=== PATIENT | female | born 1990 | race African-American/Black ===

== ENCOUNTER 2018-09-21 10:10 | Emergency (ER) | payer OTHER ==
[2018-09-21 10:33] VITALS: TEMP 98.1; BMI 50.6
--- NOTE | 2018-09-21 11:43 | PDOC ---
History of Present Illness - General Chief Complaint: Nausea/Vomiting Stated Complaint: 35WKS,DM,DIZZINESS Time Seen by Provider: 09/21/18 11:05 History Source: Patient Exam Limitations: No Limitations - History of Present Illness Initial Comments: 09/21/18 11:42 34y F , gestational at 35 weeks presents with vomiting. The pt states she startd feeling nauseous last , has been constant. she vomited 3 x over the past week that has been nbnb. pt endorses mild gradual headache on monday. She took a tylenol without significant improvement. she went to dr. velázquez for evaluation, and was told to come to the ER if the headache or nausea persists. pt notes minimal leg swelling which has been chronic for her, without any claf pain. pt denies any vision changes, numbness/tingling/weakness, cp, abd pain, sob, fever/chills, vag bleeding. PMD: Dr Velázquez Past History - Past Medical History Allergies/Adverse Reactions: Allergies Allergy/AdvReac Type Severity Reaction Status Date / Time No Known Allergies Allergy Verified 09/21/18 10:26 Home Medications: Ambulatory Orders Insulin (LOG) Aspart [NovoLOG -] 24 unit SQ ASDIR 09/21/18 Insulin (Levemir) [Levemir Vial] 105 unit SQ DAILY 09/21/18 COPD: No Diabetes: Yes (insulin) - Suicide/Smoking/Psychosocial Hx Smoking History: Never smoked Review of Systems - Review of Systems Able to Perform ROS?: Yes Comments:: 09/21/18 12:07 Constitutional - no reported Fever, Chills, HEENT: no reported vision changes, sore throat Respiratory: no reported cough, sob, hemoptysis Cardiac: no reported chest pain, palpitations, light headedness, leg swelling Abd/GI: + nausea, vomiting no reported abd pain, , blood per rectum, melena, diarrhea : no reported dysuria, frequency, discharge Musculskelatal - no reported back pain, joint swelling skin - no reported bruising, erythema, rash neurological: +headache no reported , numbness, focal weakness, tingling, ataxia , hematologic: no reported easy bruising, easy bleeding *Physical Exam - Vital Signs Last Vital Signs Temp Pulse Resp BP Pulse Ox 98.1 F 73 18 149/92 99 09/21/18 10:26 09/21/18 10:26 09/21/18 10:26 09/21/18 10:26 09/21/18 10:26 - Physical Exam Comments: 09/21/18 12:12 GENERAL: The patient is awake, alert, and fully oriented, Nontoxic - in no acute distress. HEAD: Normocephalic, atraumatic. EYES: extraocular movements intact, sclera anicteric, conjunctiva clear. ENT: Normal voice, Moist mucous membranes. NECK: Normal range of motion, supple LUNGS: Breath sounds equal, clear to auscultation bilaterally. No wheezes, no rhonchi, no rales. HEART: Regular rate and rhythm, normal S1 and S2 without murmur, rub or gallop. ABDOMEN: gravid abdomen, nontender EXTREMITIES: Normal range of motion, trace edema b/l, neg homans. NEUROLOGICAL: No facial assymetry, Normal speech, moving all 4 extremities spontaneously and symemtrically PSYCH: Normal mood, normal affect. SKIN: Warm, Dry, normal turgor, ED Treatment Course - LABORATORY CBC & Chemistry Diagram: 09/21/18 12:00 09/21/18 12:00 Medical Decision Making - Medical Decision Making 09/21/18 12:12 ddx for sx include tension headache, consider possible ecclampsia pts bp noted slighlty elevated here will ck UA, lab work, will give reglan, fluids will reassess 09/21/18 14:00 labs reviewed headache resolved pt currently asymptmoatic The patient was able to tolerate a meal without any nausea or vomiting. will dc with volleyball player fu next week return prcautions were discussed I discussed the physical exam findings, ancillary test results and final diagnoses with the patient. I answered all of the patient's questions. The patient was satisfied with the care received and felt comfortable with the discharge plan and treatment plan. The patient will call their primary care physician within 24 hours to arrange follow-up and will return to the Emergency Department with any new, persistent or worsening symptoms. *DC/Admit/Observation/Transfer Diagnosis at time of Disposition: headache in third trimester - Discharge Dispostion Disposition: HOME Condition at time of disposition: Improved Decision to Admit order: No - Referrals Referrals: Issa Velázquez MD [Primary Care Provider] - - Patient Instructions Printed Discharge Instructions: DI for Vomiting -- Adult Additional Instructions: Return to the emergency department immediately with ANY new, persistent or worsening symptoms including any worsening headache, vision changes, nausea, vomiting, fevers, vaginal bleeding, abdominal pain or any other concerns. You MUST call and follow up with your doctor tomorrow for further evaluation of your symptoms. Results were discussed with you. Please make sure your doctor reviews the results of your emergency evaluation. Print Language: MALAY - Post Discharge Activity
[2018-09-21] MEDS ORDERED: METOCLOPRAMIDE HCL INJECTION 10 MG/2 ML VIAL IVPUSH ONE (11:47)
[2018-09-21] MEDS ORDERED: ACETAMINOPHEN 325 MG TABLET (FP) PO ONE (11:47)
[2018-09-21] MEDS ORDERED: METOCLOPRAMIDE HCL INJECTION 10 MG/2 ML VIAL ONE (11:53)
[2018-09-21] MEDS ORDERED: SODIUM CHLORIDE 1,000 ML IV ONE (11:56)
[2018-09-21 12:16] LABS: BASO % 0.2 % (0-2.0); EOS % 0.4 % (0-4.5); HEMOGLOBIN 12.9 GM/dL (10.7-15.3); LYMPH % 26.3 % (8-40); MCH 29.7 pg (25.7-33.7); MCHC 33.8 g/dl (32.0-36.0); MEAN CELL VOLUME 87.9 fl (80-96); MEAN PLT VOLUME 8.7 fl (7.5-11.1); NEUT % 65.1 % (42.8-82.8); PLATELET COUNT 234 K/MM3 (134-434); RBC 4.32 M/mm3 (3.60-5.2); RDW 13.8 % (11.6-15.6); WHITE BLOOD COUNT 6.9 K/mm3 (4.0-10.0)
[2018-09-21] MEDS ORDERED: ACETAMINOPHEN 325 MG TABLET (FP) ONE (12:19)
[2018-09-21 12:23] LABS: URINE APPEARANCE CLEAR; URINE BILIRUBIN NEGATIVE (<2.0 mg/dL); URINE COLOR LTYELLOW; URINE GLUCOSE (UA) NEGATIVE (NEGATIVE); URINE KETONE NEGATIVE (NEGATIVE); URINE LEUK ESTERASE NEGATIVE (NEGATIVE); URINE NITRITE NEGATIVE (NEGATIVE); URINE PROTEIN NEGATIVE (NEGATIVE); URINE UROBILINOGEN NEGATIVE mg/dL (0.2-1.0)
[2018-09-21 12:41] LABS: ALBUMIN 2.8 g/dl (3.4-5.0); ALK PHOS 175 U/L (45-117); ANION GAP 6 MMOL/L (8-16); BILIRUBIN,TOTAL 0.2 mg/dL (0.2-1); BLOOD UREA NITROGEN 10 mg/dL (7-18); CALCIUM 9.9 mg/dL (8.5-10.1); CHLORIDE 107 mmol/L (98-107); CO2 25 mmol/L (21-32); CREATININE 0.6 mg/dL (0.55-1.3); GLUCOSE,RANDOM 64 mg/dL (74-106); POTASSIUM 4.5 mmol/L (3.5-5.1); SGOT/AST 21 U/L (15-37); SGPT/ALT 31 U/L (13-61); SODIUM 137 mmol/L (136-145); TOT PROT 6.3 g/dl (6.4-8.2)
[2018-09-21 14:28] VITALS: BP 116/70; PULSE 78
== END 2018-09-21 12:25 | disposition home or self-care (01) ==
LOC: JER 10:10
PROC: 3E033GC Introduction of Other Therapeutic Substance into Peripheral Vein, Percutaneous Approach (ICD-10-PCS; principal; 2018-09-21)
PROC: 3E0337Z Introduction of Electrolytic and Water Balance Substance into Peripheral Vein, Percutaneous Approach (ICD-10-PCS; 2018-09-21)
DX: O26.893 Other specified pregnancy related conditions, third trimester (principal); Z3A.35 35 weeks gestation of pregnancy
CPT/HCPCS: 36415; 80053; 81003; 82962; 85025; 99282-25; J7030

== ENCOUNTER 2018-10-14 05:00 | Inpatient (IN) | payer OTHER ==
[2018-10-14 05:47] LABS: BASO % 0.3 % (0-2.0); EOS % 0.7 % (0-4.5); HEMATOCRIT 36.7 % (32.4-45.2); LYMPH % 28.5 % (8-40); MCH 28.7 pg (25.7-33.7); MCHC 32.6 g/dl (32.0-36.0); MEAN CELL VOLUME 88.1 fl (80-96); MEAN PLT VOLUME 9.1 fl (7.5-11.1); MONO % 8.2 % (3.8-10.2); NEUT % 62.3 % (42.8-82.8); PLATELET COUNT 217 K/MM3 (134-434); RBC 4.17 M/mm3 (3.60-5.2); RDW 13.5 % (11.6-15.6); WHITE BLOOD COUNT 6.6 K/mm3 (4.0-10.0)
[2018-10-14 05:53] VITALS: BMI 54.0
[2018-10-14] MEDS ORDERED: OXYTOCIN 30 UNITS in 0.9% NS 30 UNIT/500 ML INFUS.BAG IVPB SCH (06:00)
[2018-10-14 06:04] LABS: INR 0.86 (0.83-1.09); PROTHROMBIN TIME (PATIENT) 10.1 SEC (9.7-13.0)
[2018-10-14 06:06] LABS: ACTIVATED PTT 27.6 SECONDS (25.2-36.5)
[2018-10-14] MEDS ORDERED: AMPICILLIN SODIUM 2 GM VIAL ONE (06:07)
[2018-10-14] MEDS ORDERED: AMPICILLIN - 2 GM in SODIUM CHLORIDE 100 ML IVPB ONE (06:15)
[2018-10-14 06:26] LABS: ANION GAP 7 MMOL/L (8-16); BLOOD UREA NITROGEN 11 mg/dL (7-18); CALCIUM 9.1 mg/dL (8.5-10.1); CHLORIDE 107 mmol/L (98-107); CO2 23 mmol/L (21-32); CREATININE 0.7 mg/dL (0.55-1.3); GLUCOSE,RANDOM 76 mg/dL (74-106); POTASSIUM 4.2 mmol/L (3.5-5.1); SODIUM 137 mmol/L (136-145)
[2018-10-14] MEDS ORDERED: DEXTROSE 5%-WATER - 1,000 ML IV SCH (07:00)
[2018-10-14] MEDS ORDERED: ELECTROLYTE-148 SOLN 1,000 ML IV SCH (07:00)
[2018-10-14] MEDS ORDERED: PROMETHAZINE HCL 25 MG/1 ML VIAL ONE (07:08)
[2018-10-14] MEDS ORDERED: BUTORPHANOL TARTRATE 1 MG/ML VIAL ONE ×2 (07:08)
[2018-10-14] MEDS ORDERED: FENTANYL/BUPIVACAINE/NS/PF - PCEA - 50 ML DISP.SYRIN EP ONE ×2 (07:13→10:35)
[2018-10-14] MEDS ORDERED: NALOXONE HCL 0.4 MG/ML VIAL IVPUSH PRN (07:18)
[2018-10-14] MEDS ORDERED: LIDO 2%/EPI 1:200000 PRESRVFRE (20 ML SDVIAL) ONE ×2 (07:21→10:15)
[2018-10-14] MEDS ORDERED: FENTANYL/BUPIVACAINE/NS/PF - PCEA - 50 ML DISP.SYRIN EP SCH (07:30)
[2018-10-14] MEDS ORDERED: ONDANSETRON 4 MG/2 ML VIAL ONE ×2 (08:11→12:53)
[2018-10-14] MEDS ORDERED: ONDANSETRON 4 MG/2 ML VIAL IVPB ONE (08:15)
--- NOTE | 2018-10-14 08:48 | HP ---
Past Medical History - Primary Care Physician PCP:: Gayathri Souza - Admission Chief Complaint: 28yo @ 38.6wks with LOF, clear since 4:15am, Ctx, no VB, + FM History of Present Illness: 1. Class 3 obesity 2. GDMA2 on Insulin since early - latest dosage Levomir 24U pre dinner , EFW - 2956gm 10/02/18 3. GBS pos on Ampicillin 4. h/o short cervix - s/p Celestone this History Source: Patient, Medical Record Limitations to Obtaining History: No Limitations - Past Medical History ...: 1 ...Para: 0 ...LMP: 01/04/18 ... Weeks Gestation by Dates: 40.3 ...EDC by Dates: 10/11/18 ...EDC by Sono: 10/22/18 (38.6wks) Endocrine: Yes: Diabetes Mellitus (early dx on Insulin 24U Pre diner of Levomir) Additional Medical History: Class 3 obesity - BMI 54. Reports no history of STDs, especially HSV - Past Surgical History Past Surgical History: Yes: None Hx Myomectomy: No Hx Transabdominal Cerclage: No - Smoking History Smoking history: Never smoked Have you smoked in the past 12 months: No - Alcohol/Substance Use Hx Alcohol Use: No History of Substance Use: reports: None - Social History History of Recent Travel: No Home Medications - Allergies Allergies/Adverse Reactions: Allergies Allergy/AdvReac Type Severity Reaction Status Date / Time No Known Allergies Allergy Verified 10/14/18 05:54 - Home Medications Home Medications: Ambulatory Orders Insulin (LOG) Aspart [NovoLOG -] 24 unit SQ ACDIN 09/21/18 Vitamins (Sjr) - 1 tab PO DAILY 10/02/18 Review of Systems - Review of Systems Constitutional: reports: No Symptoms Eyes: reports: No Symptoms HENT: reports: No Symptoms Neck: reports: No Symptoms Cardiovascular: reports: No Symptoms Respiratory: reports: No Symptoms Gastrointestinal: reports: No Symptoms Genitourinary: reports: No Symptoms Breasts: reports: No Symptoms Reported Musculoskeletal: reports: No Symptoms Integumentary: reports: No Symptoms Neurological: reports: No Symptoms Endocrine: reports: No Symptoms Hematology/Lymphatic: reports: No Symptoms Psychiatric: reports: No Symptoms Pain Intensity: 2 (comfortable after epidural) Physical Exam - Maternity Vital Signs: Vital Signs Temperature 98.1 F 10/14/18 07:00 Pulse Rate 90 10/14/18 08:15 Respiratory Rate 18 10/14/18 08:15 Blood Pressure 132/94 10/14/18 08:15 O2 Sat by Pulse Oximetry (%) 100 10/14/18 08:15 Constitutional: Yes: Well Nourished, Other (Class 3 obesity) Eyes: Yes: WNL, Conjunctiva Clear, EOM Intact HENT: Yes: WNL, Atraumatic, Normocephalic Neck: Yes: WNL, Supple, Trachea Midline Cardiovascular: Yes: WNL, Regular Rate and Rhythm Lungs: Clear to auscultation Breast(s): Yes: WNL - Abdominal Exam/OB Fundal Height: 40 (inacurate due to large habitus, but EFW 7.5lb) Number of Fetuses: Single Presentation: Vertex Contractions: Yes Regularity: Regular Intensity: Mild/Mod Monitor Mode: External Heart Rate (range): 150 Heart Rate Location: Midline Category: II Accelerations: Uniform Decelerations: Variable (mild) - Vaginal Exam/OB Vaginal Bleediing: No Speculum Exam: No (VE @ 8:40) Dilatation (cm): 5-6cm Effacement (%): 100 Amniotic Membrane Status: Ruptured Nitrazine Test: Positive Amniotic Fluid: Yes: Clear Presentation: Vertex/Position Station: -2 - Physical Exam Musculoskeletal: Yes: WNL Extremities: Yes: WNL Integumentary: Yes: WNL Deep Tendon Reflex Grade: Normal +2 ...Motor Strength: WNL - Labs Lab Results: CBC, BMP 10/14/18 05:30 10/14/18 05:30 Assessment/Plan 28yo P0 @ 38.6wks with PROM in labor Admit to L&D NPO, Bed rest - Teds and Venodyne boots for DVT prophylaxis MF status reassuring FHR Category 2 with all reassuring features, excellent variability Alternating IVF between D5LR and Plasmolyte FS Q 1 hr in active labor: D5LR for FS between 80 to 120 and Plasmolyte for FS above 120 Patient is comfortable with Epidural Start gentle Pitocin to augment labor Cont. Ampicillin for GBS prophylaxis, Monitor progress of labor
[2018-10-14] MEDS ORDERED: OXYTOCIN 30 UNITS in 0.9% NS 30 UNIT/500 ML INFUS.BAG IVPB ONE (08:58)
[2018-10-14] MEDS ORDERED: DEXTROSE 5%-LACTATED RINGERS 1,000 ML IV SCH (09:15)
[2018-10-14] MEDS ORDERED: TUBERCULIN PPD 5 TU/0.1ML SYRINGE (IN PATIENT USE ONLY) ID ONE (10:00)
[2018-10-14] MEDS ORDERED: SUCCINYLCHOLINE CHLORIDE 200 MG/10 ML VIAL ONE (10:04)
[2018-10-14] MEDS ORDERED: PROPOFOL 20 ML ONE (10:04)
[2018-10-14] MEDS ORDERED: AMPICILLIN SODIUM 1 GM VIAL ONE (10:06)
[2018-10-14] MEDS ORDERED: LIDOCAINE HCL 2% 100 MG/5 ML DISP.SYRIN ONE (10:08)
[2018-10-14] MEDS ORDERED: SODIUM BICARBONATE 8.4% 50 MEQ/50 ML VIAL ONE (10:14)
[2018-10-14] MEDS ORDERED: OXYTOCIN 20 UNITS in 0.9% NS 20 UNIT/1,000 ML INFUS.BAG IV ONE ×2 (10:15→11:35)
[2018-10-14] MEDS ORDERED: AMPICILLIN - 1 GM in SODIUM CHLORIDE 100 ML IVPB SCH (10:15)
[2018-10-14 11:53] LABS: ARTERIAL BLD GAS O2 SATURATION 40.1 % (90-98.9); ARTERIAL BLOOD GAS BASE EXCESS -2.8 meq/l (-2-2); ARTERIAL BLOOD GAS PCO2 55.7 mmHg (35-45); ARTERIAL BLOOD GAS PO2 22.7 mmHg (80-100); ARTERIAL BLOOD GAS pH 7.28 (7.35-7.45)
[2018-10-14 11:54] LABS: VENOUS PC02 56.4 mmHg (38-52); VENOUS PH 7.28 (7.32-7.42); VENOUS PO2 22.5 mmHg (28-48)
--- NOTE | 2018-10-14 12:20 | PN ---
Delivery - Delivery Vaginal Delivery: Vacuum Extraction Type of Anesthesia: Epidural Episiotomy/Laceration: Vaginal Extension/lac (Left sulcus tear), 2nd degree EBL (cc): 350 Delivery, Single - Stages of Labor Date 1st Stage Initiatied: 10/14/18 Time 1st Stage Initiated: 04:15 Date 2nd Stage Initiated: 10/14/18 Time 2nd Stage Initiated: 10:50 Date of Delivery: 10/14/18 Time of Delivery: 11:30 Date Placenta Delivered: 10/14/18 Time Placenta Delivered: 11:35 Placenta: Yes: Spontaneous - Condition of Graduate Teaching Associate/Stoner Out Present: Yes Name: Luma Gatica Infant Gender: Male Weight: 6 lb 5 oz Position: Left, OP - 1 Minute Total Score: 9 5 Minutes Total Score: 9 - Greer Feeding Plan Initial Plan: Exclusive throughout hospitalization Remarks - Remarks Remarks: Patient was fully dilated, + 2 station of vertex Repetitive FHR decelerations KiWi vacuum applied to vertex, Proper positioning assured total 2 pulls with release in between constructions head and shoulders delivered atraumaticaly Cord released around the neck once, Baby handed to pediatricians
[2018-10-14] MEDS ORDERED: IBUPROFEN 600 MG TABLET (FP) PO PRN (12:49)
[2018-10-14] MEDS ORDERED: WITCH HAZEL 50% (TUCKS) 40 PAD/JAR PAD TP PRN (12:49)
[2018-10-14] MEDS ORDERED: ACETAMINOPHEN 325 MG TABLET (FP) PO PRN (12:49)
[2018-10-14] MEDS ORDERED: BENZOCAINE 28 GM HEMORRHOIDAL OINTMENT TP PRN (12:49)
[2018-10-14] MEDS ORDERED: BENZOCAINE 20% 57 GM BOTTLE TP PRN (12:49)
[2018-10-14] MEDS ORDERED: BISACODYL 10 MG SUPP.RECT RC PRN (12:49)
[2018-10-14] MEDS ORDERED: METHYLERGONOVINE MALEATE 0.2 MG/1 ML AMP IM PRN (12:49)
[2018-10-14] MEDS ORDERED: D5W-LR W/ 20 UNITS OXYTOCIN 20 UNIT/1,000 ML INFUS.BAG IV SCH (13:00)
[2018-10-14] MEDS ORDERED: OXYTOCIN 20 UNITS in 0.9% NS 20 UNIT/1,000 ML INFUS.BAG IV SCH (13:00)
[2018-10-14] MEDS ORDERED: ONDANSETRON 4 MG/2 ML VIAL IVPB PRN (13:14)
--- NOTE | 2018-10-14 14:55 | HOSP ---
Physical Examination Vital Signs: Vital Signs Temperature 100.3 F H 10/14/18 14:00 Pulse Rate 101 H 10/14/18 14:00 Respiratory Rate 22 H 10/14/18 14:00 Blood Pressure 153/87 10/14/18 14:00 O2 Sat by Pulse Oximetry (%) 100 10/14/18 12:45 Labs: CBC, BMP 10/14/18 05:30 10/14/18 05:30 Hospitalist Encounter Assessment: Rapid called as pt became lightheaded and dizzy upon standing from toilette. No LOC, no trauma Pt is a gestational diabetic. Pt took 24 U of novlog yesterday evening before arriving to hospital to deliver her baby. VS--> 148/90, HR 110, O2Sat 98% RA. BGM after apple juice is 93 Pt started on D5NS, BGM Q1H. Medicine consulted. Visit type - Emergency Visit Emergency Visit: No - New Patient This patient is new to me today: Yes Date on this admission: 10/14/18 - Critical Care Critical Care patient: No
[2018-10-14] MEDS ORDERED: DEXTROSE 5%-0.45% SALINE 1,000 ML IV SCH (15:00)
--- NOTE | 2018-10-14 16:25 | RAPID ---
Physical Examination Vital Signs: Vital Signs Temperature 100.3 F H 10/14/18 14:00 Pulse Rate 101 H 10/14/18 14:00 Respiratory Rate 22 H 10/14/18 14:00 Blood Pressure 153/87 10/14/18 14:00 O2 Sat by Pulse Oximetry (%) 100 10/14/18 12:45 Findings/Remarks: 2:45 pm Rapid Response was called. Rapid called as pt became lightheaded and dizzy upon standing from toilette. No LOC, no trauma Pt is a gestational diabetic. Pt took 24 U of novlog yesterday evening before arriving to hospital to deliver her baby. VS--> 148/90, HR 110, O2Sat 98% RA. BGM after apple juice is 93 Pt started on D5NS, BGM Q1H. Medicine consulted. Labs: CBC, BMP 10/14/18 05:30 10/14/18 05:30
--- NOTE | 2018-10-14 16:26 | CONSULT ---
Consultation: REQUESTING PROVIDER: Dr Souza CONSULT REQUEST: We have been asked to medically evaluate this patient for ( Near Syncope). HISTORY OF PRESENT ILLNESS: Pt is a pleasant 28 y/o lady (GBS Positive, PROM, Gestational Diabetes) who this AM underwent a @ 38.6wks using a Vacuum Extraction. Pt today around 2:45 PM was sitting on the toilette when she began to experience lightheadedness. Pt was given apple juice and her BGM was checked afterwards and was 93. Pt appeared diaphoretic and endorsed nausea. Pt endorses that she took 24 U of Novolog Insulin yesterday evening and has not consumed any food since then. Pt currently denies chest pain, sob, nausea, vomiting, or LOC. Denies any significant past medical history. REVIEW OF SYSTEMS: CONSTITUTIONAL: ROS at time of Near Syncope PRESENT: generalized weakness HEENT: Absent: rhinorrhea, nasal congestion, throat pain, throat swelling, difficulty swallowing, mouth swelling, ear pain, eye pain, visual changes CARDIOVASCULAR: Absent: chest pain, syncope, palpitations, irregular heart rate, lightheadedness , peripheral edema RESPIRATORY: Absent: cough, shortness of breath, dyspnea with exertion, orthopnea, wheezing, stridor, hemoptysis GASTROINTESTINAL: Absent: abdominal pain, abdominal distension, nausea, vomiting, diarrhea, constipation, melena, hematochezia GENITOURINARY: Absent: dysuria, frequency, urgency, hesitancy, hematuria, flank pain, genital pain MUSCULOSKELETAL: Absent: myalgia, arthralgia, joint swelling, back pain, neck pain SKIN: Absent: rash, itching, pallor HEMATOLOGIC/IMMUNOLOGIC: Absent: easy bleeding, easy bruising, lymphadenopathy, frequent infections ENDOCRINE: Absent: unexplained weight gain, unexplained weight loss, heat intolerance, cold intolerance NEUROLOGIC: PRESENT: dizziness PSYCHIATRIC: Absent: anxiety, depression, suicidal or homicidal ideation, hallucinations. PHYSICAL EXAMINATION Vital Signs - 24 hr 10/14/18 10/14/18 10/14/18 05:15 06:00 07:00 Temperature 97.9 F 98.2 F 98.1 F Pulse Rate 99 H 82 98 H Respiratory 20 20 20 Rate Blood Pressure 135/57 L 145/91 140/78 O2 Sat by Pulse Oximetry (%) 10/14/18 10/14/18 10/14/18 07:10 07:30 07:35 Temperature Pulse Rate 85 86 Respiratory 18 18 Rate Blood Pressure 157/91 141/88 O2 Sat by Pulse 98 98 98 Oximetry (%) 18 18/18 18/18 07:40 07:45 08:00 Temperature Pulse Rate 91 H 79 89 Respiratory 18 18 18 Rate Blood Pressure 125/89 134/85 133/95 O2 Sat by Pulse 97 98 98 Oximetry (%) 18 18/18 18/18 08:15 08:30 08:45 Temperature Pulse Rate 90 76 70 Respiratory 18 18 18 Rate Blood Pressure 132/94 155/101 H 145/81 O2 Sat by Pulse 100 100 100 Oximetry (%) 18 10/14/18 10/14/18 09:00 09:15 09:30 Temperature Pulse Rate 72 75 72 Respiratory 18 18 18 Rate Blood Pressure 143/79 136/73 130/80 O2 Sat by Pulse 100 100 100 Oximetry (%) 10/14/1810/14/18 18 09:45 10:00 10:15 Temperature Pulse Rate 81 75 73 Respiratory 18 18 18 Rate Blood Pressure 122/94 139/78 149/83 O2 Sat by Pulse 100 100 100 Oximetry (%) 18 10/14/18 18 10:30 10:45 11:00 Temperature Pulse Rate 78 118 H 97 H Respiratory 18 18 18 Rate Blood Pressure 144/87 86/58 L 133/77 O2 Sat by Pulse 100 100 100 Oximetry (%) 18 18 18 12:00 12:15 12:30 Temperature Pulse Rate 98 H 96 H 98 H Respiratory 18 18 18 Rate Blood Pressure 137/86 137/67 119/64 O2 Sat by Pulse 100 100 100 Oximetry (%) 18 18 12:45 14:00 Temperature 98.8 F 100.3 F H Pulse Rate 91 H 101 H Respiratory 18 22 H Rate Blood Pressure 126/69 153/87 O2 Sat by Pulse 100 Oximetry (%) GENERAL: AWAKE Alert Oriented, pleasant HEAD: NC/AT EYES: PERRLa EOMI, no scleral icterus, conjunctivae clear EARS, NOSE, THROAT:MMM No adenopathy appreciated, No thyromegaly palpated, Razor burn on upper neck? NECK: Normal range of motion, supple without lymphadenopathy, JVD, or masses. LUNGS: Decreased BS throughout HEART: Tachycardic, RR, No MRG S1S2 ABDOMEN: Obese NDNT, No Suprapubic tenderness. MUSCULOSKELETAL: FULL ROM THROUGHOUT UPPER EXTREMITIES:No CCE LOWER EXTREMITIES: No Pedal Edema NEUROLOGICAL: Cranial nerves II-XII intact. PSYCHIATRIC: Cooperative. Good eye contact. Appropriate mood and affect. SKIN: No rashes or lesions appreciated Laboratory Results - last 24 hr 10/14/18 10/14/18 10/14/18 05:30 05:30 05:30 WBC 6.6 RBC 4.17 Hgb 12.0 Hct 36.7 MCV 88.1 MCH 28.7 MCHC 32.6 RDW 13.5 Plt Count 217 MPV 9.1 Absolute Neuts (auto) 4.1 Neutrophils % 62.3 Lymphocytes % 28.5 Monocytes % 8.2 Eosinophils % 0.7 Basophils % 0.3 Nucleated RBC % 0 PT with INR 10.10 INR 0.86 PTT (Actin FS) 27.6 ABG pH ABG pCO2 at Pt Temp ABG pO2 at Pt Temp ABG HCO3 ABG O2 Sat (Measured) ABG O2 Content ABG Base Excess VBG pH POC VBG pCO2 POC VBG pO2 Mixed VBG HCO3 Sodium 137 Potassium 4.2 Chloride 107 Carbon Dioxide 23 Anion Gap 7 L BUN 11 Creatinine 0.7 Creat Clearance w eGFR > 60 POC Glucometer Random Glucose 76 Calcium 9.1 RPR Titer HIV 1&2 Antibody Screen HIV P24 Antigen Blood Type Antibody Screen 10/14/18 10/14/18 10/14/18 05:30 05:30 05:30 WBC RBC Hgb Hct MCV MCH MCHC RDW Plt Count MPV Absolute Neuts (auto) Neutrophils % Lymphocytes % Monocytes % Eosinophils % Basophils % Nucleated RBC % PT with INR INR PTT (Actin FS) ABG pH ABG pCO2 at Pt Temp ABG pO2 at Pt Temp ABG HCO3 ABG O2 Sat (Measured) ABG O2 Content ABG Base Excess VBG pH POC VBG pCO2 POC VBG pO2 Mixed VBG HCO3 Sodium Potassium Chloride Carbon Dioxide Anion Gap BUN Creatinine Creat Clearance w eGFR POC Glucometer Random Glucose Calcium RPR Titer Nonreactive HIV 1&2 Antibody Screen Negative HIV P24 Antigen Negative Blood Type O POSITIVE Antibody Screen Negative 10/14/18 10/14/1818 06:14 08:40 09:52 WBC RBC Hgb Hct MCV MCH MCHC RDW Plt Count MPV Absolute Neuts (auto) Neutrophils % Lymphocytes % Monocytes % Eosinophils % Basophils % Nucleated RBC % PT with INR INR PTT (Actin FS) ABG pH ABG pCO2 at Pt Temp ABG pO2 at Pt Temp ABG HCO3 ABG O2 Sat (Measured) ABG O2 Content ABG Base Excess VBG pH POC VBG pCO2 POC VBG pO2 Mixed VBG HCO3 Sodium Potassium Chloride Carbon Dioxide Anion Gap BUN Creatinine Creat Clearance w eGFR POC Glucometer 72 79 69 Random Glucose Calcium RPR Titer HIV 1&2 Antibody Screen HIV P24 Antigen Blood Type Antibody Screen 10/14/18 10/14/18 10/14/18 11:40 11:40 14:50 WBC RBC Hgb Hct MCV MCH MCHC RDW Plt Count MPV Absolute Neuts (auto) Neutrophils % Lymphocytes % Monocytes % Eosinophils % Basophils % Nucleated RBC % PT with INR INR PTT (Actin FS) ABG pH 7.28 L ABG pCO2 at Pt Temp 55.7 H ABG pO2 at Pt Temp 22.7 L* ABG HCO3 25.1 ABG O2 Sat (Measured) 40.1 L* ABG O2 Content 10.7 L ABG Base Excess -2.8 L VBG pH 7.28 L POC VBG pCO2 56.4 H POC VBG pO2 22.5 L Mixed VBG HCO3 25.4 H Sodium Potassium Chloride Carbon Dioxide Anion Gap BUN Creatinine Creat Clearance w eGFR POC Glucometer 93 Random Glucose Calcium RPR Titer HIV 1&2 Antibody Screen HIV P24 Antigen Blood Type Antibody Screen 10/14/18 15:35 WBC RBC Hgb Hct MCV MCH MCHC RDW Plt Count MPV Absolute Neuts (auto) Neutrophils % Lymphocytes % Monocytes % Eosinophils % Basophils % Nucleated RBC % PT with INR INR PTT (Actin FS) ABG pH ABG pCO2 at Pt Temp ABG pO2 at Pt Temp ABG HCO3 ABG O2 Sat (Measured) ABG O2 Content ABG Base Excess VBG pH POC VBG pCO2 POC VBG pO2 Mixed VBG HCO3 Sodium Potassium Chloride Carbon Dioxide Anion Gap BUN Creatinine Creat Clearance w eGFR POC Glucometer 197 Random Glucose Calcium RPR Titer HIV 1&2 Antibody Screen HIV P24 Antigen Blood Type Antibody Screen Active Medications Generic Name Dose Route Start Last Admin Trade Name Freq PRN Reason Stop Dose Admin Acetaminophen 650 mg 10/14/18 12:49 10/14/18 14:20 Tylenol - PO 650 mg Q3H PRN Administration FEVER Benzocaine 1 spray 10/14/18 12:49 Americaine 20% Widener - TP PRN PRN Pain - Topical Benzocaine 1 applic 10/14/18 12:49 Americaine Ointment - TP PRN PRN Pain - Topical Bisacodyl 10 mg 10/14/18 12:49 Dulcolax Suppository - RC PRN PRN CONSTIPATION Diphtheria/Tetanus/Acell Pertussis 0.5 ml 10/15/18 10:00 Boostrix - IM 10/15/18 10:01 .ONCE ONE Ferrous Sulfate 325 mg 10/14/18 22:00 Feosol - PO BID ANDREIA Oxytocin/Sodium Chloride 20 unit in 1,000 mls @ 125 mls/hr 10/14/18 13:00 11:35 Normal Saline+20 Units Oxytocin - IV 125 mls/hr ASDIR ANDREIA Administration Dextrose/Sodium Chloride 1,000 mls @ 100 mls/hr 10/14/18 15:00 D5-1/2ns - IV ASDIR ANDREIA Ibuprofen 600 mg 10/14/18 12:49 10/14/18 14:21 Motrin - PO 600 mg Q4H PRN Administration PAIN LEVEL 1-5 Methylergonovine Maleate 0.2 mg 10/14/18 12:49 Methergine Injection - IM Q4H PRN EXCESSIVE BLEEDING (L&D) Naloxone HCl 0.4 mg 10/14/18 07:18 Narcan - IVPUSH PRN PRN Sedation Ondansetron HCl 4 mg 10/14/18 13:14 10/14/18 13:00 Zofran Injection IVPB 4 mg Q6H PRN Administration NAUSEA Multivit/Folic Acid/Iron 1 tab 10/15/18 10:00 Vitamins (Sjr) - PO DAILY ANDREIA Senna/Docusate Sodium 2 tablet 10/15/18 22:00 Pericolace - PO HS PRN CONSTIPATION Witch Sophia/Glycerin 1 pad 10/14/18 12:49 Tucks Pads - TP PRN PRN Pain - Topical ASSESSMENT/PLAN: Pt is a pleasant 28 y/o lady (GBS Positive, PROM, Gestational Diabetes) who this AM underwent a @ 38.6wks using a Vacuum Extraction. Pt today around 2:45 PM was sitting on the toilette when she began to experience lightheadedness. # Near Syncope 2/2 Hypoglycemia? -Pt BGM 93 after drinking apple juice. Pt's BGM last was 69. - H/o Gestational diabetes, 24 U Novolog Insulin every evening before Dinner - Pt was started on d5 1/2 NS and BGM Q1H. Pt switched to NS after pt's BGM were WNL. NS now D/C'ed, pt eating well. - Sliding Scale ACHS. -Encourage OOB with Assistance - - as per OB service #FEN No Fluids Monitor Electrolytes Regular Diet #DVT ppx: EAM Dispo: We will continue to follow the patient. Thank you for this consultative opportunity. Visit type - Emergency Visit Emergency Visit: No - New Patient This patient is new to me today: Yes Date on this admission: 10/14/18 - Critical Care Critical Care patient: No
--- NOTE | 2018-10-14 16:36 | PN ---
Teaching Attending Note Name of Resident: Baldemar Staples ATTENDING PHYSICIAN STATEMENT I saw and evaluated the patient. I reviewed the resident's note and discussed the case with the resident. I agree with the resident's findings and plan as documented. SUBJECTIVE:28yo F with gestational diabetes s/p spontaneous vaginal delivery at 38.6weeks gestation we were consulted for near syncope episode after delivery. pt was assisted to bathroom by RN and had near-syncopal episode on the toilet. on arrival patient was alert but fatigued, diaphoretic and nauseated. pt states she took novolog 24units last night prior to arrival to the hospital but has not eaten since then. states her sugars have been controlled iwth insulin. no complications reported during delivery. pt was given a cup of apple juice to drink which she consumed half with some moderate relief. vitals during the COMMUNITY AFFAIRS DIRECTOR were SBP 140's HR 108. saturating 98% on RA. BGM 93. denies CP, fver, chills, V/ C/D. pt was assisted from the bathroom to the bed where she felt improved OBJECTIVE: Last Vital Signs Temp Pulse Resp BP Pulse Ox 100.3 F H 101 H 22 H 153/87 100 10/14/18 14:00 10/14/18 14:00 10/14/18 14:00 10/14/18 14:00 10/14/18 12:45 General fatigued, alert CV S1 S2 tachy lungs CTA B/L no wheezing/rlaes/rhonchi Abdomen soft diffusely tender +gravid uterus obese ASSESSMENT AND PLAN: 28yo F with gestational DM who came to the ER in active labor and had normal spontaneous vaginal delivery today with COMMUNITY AFFAIRS DIRECTOR called due to near-syncopal episode due and asked to monitor patient while hospitalized 1. Near- syncope- likely due to dehydration and hypoclycemia. pt BGM 93 after drinking apple juice. last BGM 69 several hours earlier and patient did not eat. will start patient on D5NS and check BGM Q1H for several hours and once stable and eating can switch to ACHS. can d/c IVF once BGM remain stable and patient is tolerating diet. encouraged patient to remain in bed and only OOB with assistance at this time. 2. - as per OB service 3. Thank you for this consultative opportunity. will continue to follow this patient with you
[2018-10-14] MEDS ORDERED: SODIUM CHLORIDE 1,000 ML IV SCH (17:00)
[2018-10-14] MEDS: FERROUS SO4 325 MG TABLET (FP) PO SCH (22:03)
[2018-10-15 08:06] LABS: BASO % 0.1 % (0-2.0); EOS % 0.1 % (0-4.5); HEMATOCRIT 33.7 % (32.4-45.2); HEMOGLOBIN 10.9 GM/dL (10.7-15.3); LYMPH % 17.1 % (8-40); MCH 28.6 pg (25.7-33.7); MCHC 32.3 g/dl (32.0-36.0); MEAN CELL VOLUME 88.5 fl (80-96); MONO % 7.4 % (3.8-10.2); NEUT % 75.3 % (42.8-82.8); PLATELET COUNT 218 K/MM3 (134-434); RBC 3.81 M/mm3 (3.60-5.2); RDW 13.8 % (11.6-15.6); WHITE BLOOD COUNT 12.4 K/mm3 (4.0-10.0)
[2018-10-15] MEDS ORDERED: NIFEdipine 10 MG CAPSULE (FP) PO SCH (10:00)
[2018-10-15] MEDS ORDERED: DIPHTH,PERTUSS(ACELL),TET 0.5 ML DISP.SYRIN IM ONE (10:00)
[2018-10-15] MEDS: FERROUS SO4 325 MG TABLET (FP) PO SCH ×2 (10:59→21:18)
[2018-10-15] MEDS: PRENATAL VITAMINS W/ FOLIC ACID TABLET (FP) PO SCH (11:00)
[2018-10-15] MEDS: NIFEdipine E.R. 30 MG TABLET (FP) PO ONE ×3 (11:22→12:07)
[2018-10-15] MEDS ORDERED: NIFEdipine E.R. 30 MG TABLET (FP) PO SCH (12:16)
--- NOTE | 2018-10-15 12:25 | PN ---
Physical Exam: SUBJECTIVE: Patient seen and examined at bedside. No acute events overnight. BP 150/94 this am. Complaining of constipation this am. OBJECTIVE: Vital Signs Period Temp Pulse Resp BP Sys/Dyer Pulse Ox Last 24 Hr 98 F-100.3 F 91-102 18-22 119-153/64-103 100-100 GENERAL: AAOx3, NAD, Pleasant HEAD: NC/AT EYES: PERRLA EOMI ENT: MMM NECK:Supple LUNGS: CTA B/L no wheezing rales or rhonchi HEART: RRR No MRG S1S2 ABDOMEN: Obese, NDNT EXTREMITIES: No CCE NEUROLOGICAL: Cranial nerves II through XII grossly intact. PSYCH: Normal mood, normal affect. SKIN: No rashes or lesions appreciated Laboratory Results - last 24 hr 10/14/18 10/14/18 10/14/18 14:50 15:35 16:54 WBC RBC Hgb Hct MCV MCH MCHC RDW Plt Count MPV Absolute Neuts (auto) Neutrophils % Lymphocytes % Monocytes % Eosinophils % Basophils % Nucleated RBC % POC Glucometer 93 197 134 10/14/18 10/15/18 10/15/18 21:38 06:18 07:15 WBC 12.4 H RBC 3.81 Hgb 10.9 Hct 33.7 MCV 88.5 MCH 28.6 MCHC 32.3 RDW 13.8 Plt Count 218 MPV 9.0 Absolute Neuts (auto) 9.3 H Neutrophils % 75.3 D Lymphocytes % 17.1 D Monocytes % 7.4 Eosinophils % 0.1 D Basophils % 0.1 Nucleated RBC % 0 POC Glucometer 91 99 10/15/18 11:30 WBC RBC Hgb Hct MCV MCH MCHC RDW Plt Count MPV Absolute Neuts (auto) Neutrophils % Lymphocytes % Monocytes % Eosinophils % Basophils % Nucleated RBC % POC Glucometer 90 Active Medications Generic Name Dose Route Start Last Admin Trade Name Freq PRN Reason Stop Dose Admin Acetaminophen 650 mg 10/14/18 12:49 10/14/18 14:20 Tylenol - PO 650 mg Q3H PRN Administration FEVER Benzocaine 1 spray 10/14/18 12:49 Americaine 20% [place] - TP PRN PRN Pain - Topical Benzocaine 1 applic 10/14/18 12:49 Americaine Ointment - TP PRN PRN Pain - Topical Bisacodyl 10 mg 10/14/18 12:49 Dulcolax Suppository - RC PRN PRN CONSTIPATION Ferrous Sulfate 325 mg 10/14/18 22:00 10/15/18 10:59 Feosol - PO 325 mg BID ANDREIA Administration Oxytocin/Sodium Chloride 20 unit in 1,000 mls @ 125 mls/hr 10/14/18 13:00 11:35 Normal Saline+20 Units Oxytocin - IV 125 mls/hr ASDIR ANDREIA Administration Ibuprofen 600 mg 10/14/18 12:49 10/14/18 14:21 Motrin - PO 600 mg Q4H PRN Administration PAIN LEVEL 1-5 Insulin Aspart 1 vial 10/15/18 16:30 Novolog Vial Sliding Scale - SQ ACHS [facility] Protocol Methylergonovine Maleate 0.2 mg 10/14/18 12:49 Methergine Injection - IM Q4H PRN EXCESSIVE BLEEDING (L&D) Naloxone HCl 0.4 mg 10/14/18 07:18 Narcan - IVPUSH PRN PRN Sedation Nifedipine 30 mg 10/15/18 12:16 Procardia Xl - PO DAILY [facility] Ondansetron HCl 4 mg 10/14/18 13:14 10/14/18 13:00 Zofran Injection IVPB 4 mg Q6H PRN Administration NAUSEA Multivit/Folic Acid/Iron 1 tab 10/15/18 10:00 10/15/18 11:00 Vitamins (Sjr) - PO 1 tab DAILY ANDREIA Administration Senna/Docusate Sodium 2 tablet 10/15/18 22:00 Pericolace - PO HS PRN CONSTIPATION Witch Sophia/Glycerin 1 pad 10/14/18 12:49 Tucks Pads - TP PRN PRN Pain - Topical ASSESSMENT/PLAN: Pt is a pleasant 28 y/o lady (GBS Positive, PROM, Gestational Diabetes) who this AM underwent a @ 38.6wks using a Vacuum Extraction. Pt today around 2:45 PM was sitting on the toilette when she began to experience lightheadedness. # Near Syncope 2/2 Hypoglycemia? -Pt BGM 93 after drinking apple juice. Pt's BGM last was 69. Last 5 BGM are as follows: 197, 134, 91, 99, 90. - H/o Gestational diabetes, 24 U Novolog Insulin every evening before Dinner - Pt was started on d5 1/2 NS and BGM Q1H. Pt switched to NS after pt's BGM were WNL. NS now D/C'ed, pt eating well. - Insulin sliding scale 0,0,2,4,6,8 -Encourage OOB with Assistance - - as per OB service -Urinalysis to assess for proteinuria R/O preeclampsia in light of recent BP readings. Last BP this am was 150/91 #FEN No Fluids Monitor Electrolytes Regular Diet #DVT ppx: EAM Visit type - Emergency Visit Emergency Visit: No - New Patient This patient is new to me today: No - Critical Care Critical Care patient: No - Discharge Referral Referred to [facility] Med P.C.: No
--- NOTE | 2018-10-15 15:36 | PN ---
Teaching Attending Note Name of Resident: Baldemar Staples ATTENDING PHYSICIAN STATEMENT I saw and evaluated the patient. I reviewed the resident's note and discussed the case with the resident. I agree with the resident's findings and plan as documented. SUBJECTIVE:asymptomatic. states she feels much improved from yesterday. no repeat episodes of near syncope or diaphoresis. eating well. denies Cp, SOB, fever, chills, N/V/C/D, blurred vision or VILLATORO OBJECTIVE: Last Vital Signs Temp Pulse Resp BP Pulse Ox 98.3 F 93 H 20 151/91 100 10/15/18 14:00 10/15/18 14:00 10/15/18 14:00 10/15/18 14:00 10/14/18 12:45 General NAD CV S1 S2 RRR no murmur/rub/gallop lungs CTA B/L no wheezing/rlaes/rhonchi Abdomen soft diffusely tender +gravid uterus obese ASSESSMENT AND PLAN: 28yo F with gestational DM who came to the ER in active labor and had normal spontaneous vaginal delivery today with BEEF TAGGER called due to near-syncopal episode due and asked to monitor patient while hospitalized 1. Near- syncope- likely due to dehydration and hypoglycemia. sugars now improved. eating well. no repeat episodes. monitor BGM 2. Elevated BP- can be pain induced. however not stating she is in pain. check UA for protein. consider starting antihypertensive if persist 3. obesity- counselled on dietary and exercise changes to loose weight to prevent shelter complications of obesity 4. gestation DM- sugars have been controlled. cont ISS. should be evaluated in several months with A1c to see if DM persists as high liklihood of DM later in life 5. - as per OB service 6. Thank you for this consultative opportunity. will continue to follow this patient with you
[2018-10-15 17:11] LABS: URINE APPEARANCE CLEAR; URINE BILIRUBIN NEGATIVE (<2.0 mg/dL); URINE COLOR YELLOW; URINE GLUCOSE (UA) NEGATIVE (NEGATIVE); URINE KETONE NEGATIVE (NEGATIVE); URINE LEUK ESTERASE 2+ (NEGATIVE); URINE NITRITE NEGATIVE (NEGATIVE); URINE PROTEIN 1+ (NEGATIVE); URINE UROBILINOGEN NEGATIVE mg/dL (0.2-1.0)
[2018-10-15] MEDS: INSULIN SLIDING SCALE (NOVOLOG) 1 VIAL SQ SCH ×2 (17:15→22:42)
[2018-10-15 17:22] LABS: EPI CELLS RARE /HPF (FEW); URINE MUCUS RARE
[2018-10-15 20:29] LABS: RETICULOCYTES 1.74 % (0.5-1.5)
[2018-10-15 21:22] VITALS: TEMP 98.3
[2018-10-15 21:28] LABS: URIC ACID 3.8 mg/dL (2.6-7.2)
[2018-10-15] MEDS ORDERED: SENNOSIDES/DOCUSATE COMBO (SENNA PLUS) TABLET (UD) PO PRN (22:00)
--- NOTE | 2018-10-15 22:25 | PN ---
Post Progress Note - Subjective Subjective: She has no complains, no VILLATORO, no visual changes, she is happy and smiling Post Day: 1 Type of Delivery: Vital Signs: Vital Signs Temperature 98.3 F 10/15/18 21:22 Pulse Rate 100 H 10/15/18 21:22 Respiratory Rate 20 10/15/18 21:22 Blood Pressure 146/92 10/15/18 21:22 O2 Sat by Pulse Oximetry (%) 100 10/14/18 12:45 Breast Exam: Yes: Soft Uterus: Yes: Fundus Firm Abdomen/GI: Yes: Abdomen soft Lochia: Yes: Rubra Lochia, amount: Small Extremities: Yes: Calves non-tender Perineum: Yes: Laceration Activity: Ambulating - Labs Labs: CBC WBC 12.4 K/mm3 (4.0-10.0) H 10/15/18 07:15 RBC 3.81 M/mm3 (3.60-5.2) 10/15/18 07:15 Hgb 10.9 GM/dL (10.7-15.3) 10/15/18 07:15 Hct 33.7 % (32.4-45.2) 10/15/18 07:15 MCV 88.5 fl (80-96) 10/15/18 07:15 MCH 28.6 pg (25.7-33.7) 10/15/18 07:15 MCHC 32.3 g/dl (32.0-36.0) 10/15/18 07:15 RDW 13.8 % (11.6-15.6) 10/15/18 07:15 Plt Count 247 K/MM3 (134-434) 10/15/18 19:45 MPV 9.0 fl (7.5-11.1) 10/15/18 07:15 Absolute Neuts (auto) 9.3 K/mm3 (1.5-8.0) H 10/15/18 07:15 Neutrophils % 75.3 % (42.8-82.8) D 10/15/18 07:15 Lymphocytes % 17.1 % (8-40) D 10/15/18 07:15 Monocytes % 7.4 % (3.8-10.2) 10/15/18 07:15 Eosinophils % 0.1 % (0-4.5) D 10/15/18 07:15 Basophils % 0.1 % (0-2.0) 10/15/18 07:15 Nucleated RBC % 0 % (0-0) 10/15/18 07:15 Retic Count 1.74 % (0.5-1.5) H 10/15/18 19:45 Assessment/Plan 28yo P1 s/p , PPD #1 Doing well Modarately elavated BP will start Procardia 30mg daily Encourage ambuation and continue routine PP care Rhpos no need for rhogam Baby boy in special nursery, fo circumcision
--- NOTE | 2018-10-16 07:01 | DS ---
Physical Exam-FINANCIAL LEGAL ASSISTANT Vital Signs: Vital Signs Temperature 98.3 F 10/15/18 21:22 Pulse Rate 93 H 10/16/18 05:50 Respiratory Rate 20 10/16/18 05:50 Blood Pressure 128/63 10/16/18 05:50 O2 Sat by Pulse Oximetry (%) 100 10/14/18 12:45 Constitutional: Yes: Well Nourished, No Distress, Calm HENT: Yes: WNL, Atraumatic, Normocephalic Neck: Yes: WNL, Supple, Trachea Midline Cardiovascular: Yes: WNL, Regular Rate and Rhythm Respiratory: Yes: WNL, Regular, CTA Bilaterally Gastrointestinal: Yes: WNL, Normal Bowel Sounds, Soft Renal/: Yes: WNL Pelvis: Yes: WNL External Genitalia: Yes: Normal ....Post : Yes: Uterus firm, Uterus non-tender Breast(s): Yes: WNL Musculoskeletal: Yes: WNL Extremities: Yes: WNL Edema: No Integumentary: Yes: WNL Wound/Incision: Yes: Clean/Dry, Well Approximated Neurological: Yes: WNL, Alert, Oriented ...Motor Strength: WNL Psychiatric: Yes: WNL, Alert, Oriented Labs: CBC, BMP 10/15/18 19:45 10/14/18 05:30 Delivery - Delivery Vaginal Delivery: Vacuum Extraction Type of Anesthesia: Epidural Episiotomy/Laceration: Vaginal Extension/lac (Left sulcus tear), 2nd degree EBL (cc): 350 Delivery, Single - Stages of Labor Date 1st Stage Initiatied: 10/14/18 Time 1st Stage Initiated: 04:15 Date 2nd Stage Initiated: 10/14/18 Time 2nd Stage Initiated: 10:50 Date of Delivery: 10/14/18 Time of Delivery: 11:30 Time Placenta Delivered: 11:35 Placenta: Yes: Spontaneous - Condition of Laboratory Technician/Primary Special Educator Present: Yes Name: Luma Gatica Gender: Male Weight: 6 lb 5 oz Position: Left, OP Total Hours ROM (Hrs/Mins): 7hrs/20mins - 1 Minute Total Score: 9 5 Minutes Total Score: 9 - Feeding Plan Initial Plan: Exclusive throughout hospitalization Discharge Summary Reason For Visit: LABOR Gestational diabetis on Insulin Transient Hypertension Procedures: Principal: Normal vaginal delivery. Transient hypertension treatead with Procardia, normalised Other Procedures: Penile circumcision Hospital Course: Uncomplicated Condition: Good - Instructions Diet, Activity, Other Instructions: Physical activity Resume your normal everyday activity as tolerated no heavy lifting or exercise until seen by your surgeon. You may walk unlimited jeison of and climb stairs. You may resume driving the car when you feel safe and comfortable behind the wheel. No sexual activity as instructed. Wound care If you have a bandage, leave it on, and keep dry for 48-72 hours. After that time discard the outer bandage. If they are tapes on the skin under the out of bandage leave them in place. They will peel off in the next 7 to 10 days. Do Not Peel them off. You may shower the day after surgery. If there are tapes present on the skin, you may shower over them. Diet There are no dietary restrictions. Eat healthy, high-fiber foods. Drink 6 to 8 glasses of liquid each day. This will assist in keeping your bowels are regular. Pain management You may take Tylenol or acetaminophen or Ibuprofen (for example, Motrin, Advil etc.) from my pain prescription medication is ordered should be taken as prescribed for moderate to severe pain. Call MD for any of the following: Severe pain not relieved by medication Fever of 101 or higher Excessive bleeding or drainage on dressing Inability to urinate Referrals: Issa Coello MD [Staff Physician] - Disposition: HOME - Home Medications Comprehensive Discharge Medication List: Ambulatory Orders Insulin (LOG) Aspart [NovoLOG -] 24 unit SQ ACDIN 09/21/18 Vitamins (Sjr) - 1 tab PO DAILY 10/02/18
[2018-10-16] MEDS: INSULIN SLIDING SCALE (NOVOLOG) 1 VIAL SQ SCH ×2 (08:05→11:42)
[2018-10-16 08:53] VITALS: BP 135/87; PULSE 86
--- NOTE | 2018-10-16 10:56 | PN ---
Physical Exam: SUBJECTIVE: Patient seen and examined at bedside. No complaints. No acute events overnight. For D/C today per OB. OBJECTIVE: Vital Signs Period Temp Pulse Resp BP Sys/Dyer Pulse Ox Last 24 Hr 98.1 F-98.3 F 86-100 18-20 110-151/57-92 GENERAL: The patient is awake, alert, and fully oriented, in no acute distress. HEAD: Normal with no signs of trauma. EYES: PERRL, extraocular movements intact, sclera anicteric, conjunctiva clear. No ptosis. ENT: Ears normal, nares patent, oropharynx clear without exudates, moist mucous membranes. NECK: Trachea midline, full range of motion, supple. LUNGS: Breath sounds equal, clear to auscultation bilaterally, no wheezes, no crackles, no accessory muscle use. HEART: Regular rate and rhythm, S1, S2 without murmur, rub or gallop. ABDOMEN: Soft, nontender, nondistended, normoactive bowel sounds, no guarding, no rebound, no hepatosplenomegaly, no masses. EXTREMITIES: 2+ pulses, warm, well-perfused, no edema. NEUROLOGICAL: Cranial nerves II through XII grossly intact. Normal speech, gait not observed. PSYCH: Normal mood, normal affect. SKIN: Warm, dry, normal turgor, no rashes or lesions noted Laboratory Results - last 24 hr 10/15/18 10/15/18 10/15/18 11:30 12:24 17:01 Plt Count Retic Count POC Glucometer 90 101 Uric Acid GGT AST ALT Urine Color Yellow Urine Appearance Clear Urine pH 5.0 Ur Specific [place] 1.020 Urine Protein 1+ H Urine Glucose (UA) Negative Urine Ketones Negative Urine Blood 2+ H Urine Nitrite Negative Urine Bilirubin Negative Urine Urobilinogen Negative Ur Leukocyte Esterase 2+ H Urine WBC (Auto) 24 Urine RBC (Auto) 201 Ur Epithelial Cells Rare Urine Mucus Rare 10/15/18 10/15/18 10/15/18 19:45 19:45 22:07 Plt Count 247 Retic Count 1.74 H POC Glucometer 98 Uric Acid 3.8 GGT 7 AST 28 ALT 28 Urine Color Urine Appearance Urine pH Ur Specific [place] Urine Protein Urine Glucose (UA) Urine Ketones Urine Blood Urine Nitrite Urine Bilirubin Urine Urobilinogen Ur Leukocyte Esterase Urine WBC (Auto) Urine RBC (Auto) Ur Epithelial Cells Urine Mucus 10/16/18 07:26 Plt Count Retic Count POC Glucometer 104 Uric Acid GGT AST ALT Urine Color Urine Appearance Urine pH Ur Specific [place] Urine Protein Urine Glucose (UA) Urine Ketones Urine Blood Urine Nitrite Urine Bilirubin Urine Urobilinogen Ur Leukocyte Esterase Urine WBC (Auto) Urine RBC (Auto) Ur Epithelial Cells Urine Mucus Active Medications Generic Name Dose Route Start Last Admin Trade Name Freq PRN Reason Stop Dose Admin Acetaminophen 650 mg 10/14/18 12:49 10/14/18 14:20 Tylenol - PO 650 mg Q3H PRN Administration FEVER Benzocaine 1 spray 10/14/18 12:49 Americaine 20% [place] - TP PRN PRN Pain - Topical Benzocaine 1 applic 10/14/18 12:49 Americaine Ointment - TP PRN PRN Pain - Topical Bisacodyl 10 mg 10/14/18 12:49 Dulcolax Suppository - RC PRN PRN CONSTIPATION Ferrous Sulfate 325 mg 10/14/18 22:00 10/15/18 21:18 Feosol - PO 325 mg BID ANDREIA Administration Oxytocin/Sodium Chloride 20 unit in 1,000 mls @ 125 mls/hr 10/14/18 13:00 11:35 Normal Saline+20 Units Oxytocin - IV 125 mls/hr ASDIR [facility] Administration Ibuprofen 600 mg 10/14/18 12:49 10/14/18 14:21 Motrin - PO 600 mg Q4H PRN Administration PAIN LEVEL 1-5 Insulin Aspart 1 vial 10/15/18 16:30 10/16/18 08:05 Novolog Vial Sliding Scale - SQ Not Given ACHS [facility] Protocol Methylergonovine Maleate 0.2 mg 10/14/18 12:49 Methergine Injection - IM Q4H PRN EXCESSIVE BLEEDING (L&D) Naloxone HCl 0.4 mg 10/14/18 07:18 Narcan - IVPUSH PRN PRN Sedation Nifedipine 30 mg 10/15/18 12:16 Procardia Xl - PO DAILY [facility] Ondansetron HCl 4 mg 10/14/18 13:14 10/14/18 13:00 Zofran Injection IVPB 4 mg Q6H PRN Administration NAUSEA Multivit/Folic Acid/Iron 1 tab 10/15/18 10:00 10/15/18 11:00 Vitamins (Sjr) - PO 1 tab DAILY ANDREIA Administration Senna/Docusate Sodium 2 tablet 10/15/18 22:00 10/15/18 21:17 Pericolace - PO 2 tablet HS PRN Administration CONSTIPATION Witch Sophia/Glycerin 1 pad 10/14/18 12:49 Tucks Pads - TP PRN PRN Pain - Topical ASSESSMENT/PLAN:
[2018-10-16] MEDS: FERROUS SO4 325 MG TABLET (FP) PO SCH (11:07)
[2018-10-16] MEDS: PRENATAL VITAMINS W/ FOLIC ACID TABLET (FP) PO SCH (11:07)
[2018-10-22 09:31] LABS: SERUM IRON SATURATION 18 % (15-55); TOTAL IRON BINDING CAPACITY 451 ug/dL (250-450); UIBC 368 ug/dL (131-425)
== END 2018-10-16 12:00 | disposition home or self-care (01) | DRG 560 ==
LOC: JLDR 05:00 → J3W 13:45
PROVIDERS: ADMIT Obstetrics & Gynecology; ATTEND Obstetrics & Gynecology
PROC: 10D07Z6 Extraction of Products of Conception, Vacuum, Via Natural or Artificial Opening (ICD-10-PCS; principal; 2018-10-14)
PROC: 0KQM0ZZ Repair Perineum Muscle, Open Approach (ICD-10-PCS; 2018-10-14)
DX: O24.424 Gestational diabetes mellitus in childbirth, insulin controlled (principal); O26.873 Cervical shortening, third trimester; O42.02 Full-term premature rupture of membranes, onset of labor within 24 hours of rupture; O99.824 Streptococcus B carrier state complicating childbirth; O70.1 Second degree perineal laceration during delivery; O69.81X0 Labor and delivery complicated by cord around neck, without compression, not applicable or unspecified; Z3A.38 38 weeks gestation of pregnancy; Z37.0 Single live birth
CPT/HCPCS: 36415; 36600; 59409; 80048; 81003; 81015; 82803; 82962; 82977; 83010; 83540; 83550; 84450; 84460; 84550; 85025; 85032; 85044; 85610; 85730; 86593; 86850; 86900; 86901; 87389; 90715